=== PATIENT | male | born 1955 | race Caucasian/White ===

== ENCOUNTER 2017-11-11 07:45 | Emergency (ER) | payer OTHER, MEDICAID, MEDICARE ==
[~2017-11-11] VITALS: Ht 182.9 cm; Wt 91.3 kg
[2017-11-11 08:06] LABS: BASOPHILS % (AUTO) 0.3 % (0-1); EOSINOPHILS % (AUTO) 0.1 % (0-6); HEMATOCRIT 45.6 % (42.0-52.0); HEMOGLOBIN 15.6 g/dl (14.0-17.9); LYMPHOCYTES # (AUTO) 0.7 X10'3 (1.1-4.8); MEAN CORPUSCULAR HEMOGLOBIN 31.3 PG (27.0-31.0); MEAN CORPUSCULAR HGB CONC 34.2 % (33.0-36.5); MEAN CORPUSCULAR VOLUME 91.5 FL (78-98); MEAN PLATELET VOLUME 9.9 FL (7.4-10.4); MONOCYTES # (AUTO) 0.5 X10'3 (0-0.9); MONOCYTES % (AUTO) 5.6 % (2-12); NEUTROPHILS # (AUTO) 8.5 X10'3 (1.8-7.7); PLATELET COUNT 154 X10'3 (140-440); RED BLOOD COUNT 4.99 X10'6 (4.70-6.10); RED CELL DISTRIBUTION WIDTH 13.5 % (11.5-14.5); WHITE BLOOD COUNT 9.8 X10'3 (4.5-11.0)
[2017-11-11 08:24] LABS: ALANINE AMINOTRANSFERASE 27 U/L (12-78); ALBUMIN 4.1 G/DL (3.4-5.0); ALBUMIN/GLOBULIN RATIO 1.1 (1.1-1.5); ALKALINE PHOSPHATASE 86 IU/L (46-116); ANION GAP 13 (8-16); ASPARTATE AMINO TRANSFERASE 21 U/L (10-37); BLOOD UREA NITROGEN 24 MG/DL (7-18); BUN/CREATININE RATIO 20.5 (5.4-32.0); CALCIUM 9.3 MG/DL (8.5-10.1); CHLORIDE 102 MMOL/L (99-107); CREATININE 1.17 MG/DL (0.60-1.10); GLUCOSE 119 MG/DL (70-104); POTASSIUM 3.4 MMOL/L (3.5-5.1); SODIUM 136 MMOL/L (135-145); TOTAL CARBON DIOXIDE 21.2 MMOL/L (24-32); eGFR 63 ML/MIN
[2017-11-11] MEDS ORDERED: normal saline 1000ML IV soln IVB ONE (08:55)
[2017-11-11 08:57] LABS: INR 1.1 INR; PARTIAL THROMBOPLASTIN TIME 24 SECONDS (22-32); PROTHROMBIN TIME 11.1 SECONDS (9.0-12.0)
[2017-11-11] MEDS ORDERED: ONDA8TAB9 PO (11:55)
[2017-11-11 12:07] VITALS: BP 160/96
== END 2017-11-11 12:09 | disposition home or self-care (01) ==
LOC: ER 07:45
DX: R11.2 Nausea with vomiting, unspecified (principal); R19.7 Diarrhea, unspecified; R07.89 Other chest pain; I10 Essential (primary) hypertension; E78.00 Pure hypercholesterolemia, unspecified; G89.29 Other chronic pain
CPT/HCPCS: 36415; 71045; 80053; 83735; 83880; 84484; 85025; 85610; 85730; 93005; 96360; 99285; J7030

== ENCOUNTER 2018-03-10 08:43 | Emergency (ER) | payer OTHER, MEDICARE, MEDICAID ==
[~2018-03-10] VITALS: Ht 182.9 cm; Wt 86.0 kg
[~2018-03-10 08:43] MED LIST: ONDA8TAB9 PO
[2018-03-10 08:45] VITALS: BP 137/78
[2018-03-10] MEDS ORDERED: CYCL-1 PO (09:19)
[2018-03-10] MEDS ORDERED: ketorolac trometh inj. 60 MG/2 ML VIAL IM ONE (09:20)
== END 2018-03-10 09:36 | disposition home or self-care (01) ==
LOC: ER 08:44
DX: M54.6 Pain in thoracic spine (principal); E78.00 Pure hypercholesterolemia, unspecified; I10 Essential (primary) hypertension; G89.29 Other chronic pain; F12.90 Cannabis use, unspecified, uncomplicated; Z87.891 Personal history of nicotine dependence; Z79.899 Other long term (current) drug therapy; X50.1XXA Overexertion from prolonged static or awkward postures, initial encounter; Y93.9 Activity, unspecified; Y92.89 Other specified places as the place of occurrence of the external cause; Y99.8 Other external cause status
CPT/HCPCS: 71046; 96372; 99284; J1885

== ENCOUNTER 2018-12-01 13:46 | Emergency (ER) | payer MEDICARE, OTHER ==
[~2018-12-01] VITALS: Ht 182.9 cm; Wt 85.6 kg
[~2018-12-01 13:46] MED LIST changes: +CYCL-1 PO
[2018-12-01 14:12] VITALS: BP 100/67
[2018-12-01] MEDS ORDERED: HYDR-4353 PO (15:32)
== END 2018-12-01 15:42 | disposition home or self-care (01) ==
LOC: ER 13:46
DX: M54.2 Cervicalgia (principal); E78.00 Pure hypercholesterolemia, unspecified; I10 Essential (primary) hypertension; G89.29 Other chronic pain; F12.90 Cannabis use, unspecified, uncomplicated; Z98.890 Other specified postprocedural states
CPT/HCPCS: 72040; 99283

== ENCOUNTER 2019-01-28 16:07 | Emergency (ER) | payer MEDICARE, OTHER ==
[~2019-01-28] VITALS: Ht 182.9 cm; Wt 90.0 kg
[2019-01-28] MEDS ORDERED: METH500T PO (16:36)
[2019-01-28] MEDS ORDERED: ONDA4TAB6 PO (16:36)
[2019-01-28] MEDS ORDERED: HYDR-3965 PO (16:36)
[2019-01-28] MEDS ORDERED: VAL5T PO (16:36)
[2019-01-28] MEDS ORDERED: METH4TAB3 PO (16:36)
[2019-01-28] MEDS ORDERED: HYDROcodone/acetaminophen 5mg/325mg tablet PO ONE (16:40)
[2019-01-28] MEDS ORDERED: diazepam 5mg tablet PO ONE (16:40)
[2019-01-28] MEDS ORDERED: dexamethasone 4mg tablet PO ONE (16:40)
[2019-01-28] MEDS ORDERED: ondansetron 4mg rapidly disintigrating tab PO ONE (16:40)
--- NOTE | 2019-01-28 17:21 | NUR ---
CALLED PT DENZEL HENDERSON PER PT, #[phone] HERE IN 20MIN
[2019-01-28 17:34] VITALS: BP 138/89
== END 2019-01-28 17:37 | disposition home or self-care (01) ==
LOC: ER 16:07
DX: S16.1XXA Strain of muscle, fascia and tendon at neck level, initial encounter (principal); R20.0 Anesthesia of skin; E78.00 Pure hypercholesterolemia, unspecified; I10 Essential (primary) hypertension; G89.29 Other chronic pain; F12.90 Cannabis use, unspecified, uncomplicated; Z98.890 Other specified postprocedural states; Z79.899 Other long term (current) drug therapy; W10.8XXA Fall (on) (from) other stairs and steps, initial encounter; Y93.89 Activity, other specified; Y92.89 Other specified places as the place of occurrence of the external cause; Y99.8 Other external cause status
CPT/HCPCS: 99284; J2405; J8540

== ENCOUNTER 2019-07-24 12:52 | Emergency (ER) | payer MEDICARE ==
[~2019-07-24] VITALS: Ht 177.8 cm; Wt 86.0 kg
[~2019-07-24 12:52] MED LIST changes: +METH4TAB3 PO; +METH500T PO; +ONDA4TAB6 PO
[2019-07-24 13:59] LABS: CLARITY,URINE CLEAR (Clear); COLOR,URINE STRAW (Yellow); GLUCOSE, URINE NEGATIVE (Neg); KETONES,URINE NEGATIVE (Neg); LEUKOCYTE ESTERASE ,URINE NEGATIVE (Neg); NITRITES, URINE NEGATIVE (Neg); OCCULT BLOOD,URINE SMALL (Neg); PROTEIN,URINE NEGATIVE (Neg); UA COLLECTION TYPE CLN CATCH MIDSTREAM; UROBILINOGEN,URINE 0.2 E.U/dL (0.2-1.0)
[2019-07-24 14:06] LABS: URINE AMPHETAMINE SCREEN NEGATIVE (Neg); URINE BARBITUATE SCREEN NEGATIVE (Neg); URINE BENZODIAZEPINES SCREEN POSITIVE (Neg); URINE CANNABINOID SCREEN POSITIVE (Neg); URINE COCAINE SCREEN NEGATIVE (Neg); URINE METHADONE SCREEN NEGATIVE (Neg); URINE OPIATE SCREEN NEGATIVE (Neg); URINE PHENCYCLIDINE SCREEN NEGATIVE (Neg)
[2019-07-24 14:07] LABS: BACTERIA,URINE NONE SEEN /HPF (Neg); MUCUS STRANDS NONE SEEN /LPF (Neg); RBC,URINE 0-2 /HPF (0-2); SQUAMOUS EPITHELIAL CELL,UR NONE SEEN /LPF (FEW); WBC,URINE NONE SEEN /HPF (0-4)
[2019-07-24 14:37] LABS: BASOPHILS % (AUTO) 0.8 % (0-1); EOSINOPHILS # (AUTO) 0.4 X10'3 (0-0.9); EOSINOPHILS % (AUTO) 6.3 % (0-6); HEMATOCRIT 43.2 % (42.0-52.0); HEMOGLOBIN 14.9 g/dl (14.0-17.9); LYMPHOCYTES # (AUTO) 1.5 X10'3 (1.1-4.8); LYMPHOCYTES % (AUTO) 25.7 % (21-51); MEAN CORPUSCULAR HEMOGLOBIN 30.9 PG (27.0-31.0); MEAN CORPUSCULAR HGB CONC 34.4 g/dL (33.0-36.5); MEAN CORPUSCULAR VOLUME 89.7 FL (78-98); MEAN PLATELET VOLUME 10.1 FL (7.4-10.4); MONOCYTES # (AUTO) 0.5 X10'3 (0-0.9); MONOCYTES % (AUTO) 8.3 % (2-12); NEUTROPHILS # (AUTO) 3.5 X10'3 (1.8-7.7); NEUTROPHILS % (AUTO) 58.9 % (42-75); PLATELET COUNT 177 X10'3 (140-440); RED BLOOD COUNT 4.81 X10'6 (4.70-6.10); RED CELL DISTRIBUTION WIDTH 13.1 % (11.5-14.5)
[2019-07-24 14:43] LABS: ALANINE AMINOTRANSFERASE 27 U/L (12-78); ALBUMIN 3.9 G/DL (3.4-5.0); ALBUMIN/GLOBULIN RATIO 1.1 (1.1-1.5); ALKALINE PHOSPHATASE 80 IU/L (46-116); ANION GAP 4 (8-16); ASPARTATE AMINO TRANSFERASE 16 U/L (10-37); BILIRUBIN,TOTAL 0.5 MG/DL (0.1-1.0); BLOOD UREA NITROGEN 22 MG/DL (7-18); BUN/CREATININE RATIO 19.1 (5.4-32.0); CALCIUM 8.7 MG/DL (8.5-10.1); CHLORIDE 106 MMOL/L (99-107); CREATININE 1.15 MG/DL (0.60-1.10); GLUCOSE 102 MG/DL (70-104); POTASSIUM 4.8 MMOL/L (3.5-5.1); SODIUM 140 MMOL/L (135-145); TOTAL PROTEIN 7.3 G/DL (6.4-8.2); eGFR 64 ML/MIN
[2019-07-24] MEDS ORDERED: pantoprazole 40mg Tablet.DR PO ONE (14:50)
[2019-07-24] MEDS ORDERED: famotidine 20mg tablet PO ONE (14:50)
[2019-07-24 14:54] LABS: ETHANOL < 0.010 GM/DL (0.0-0.010); TROPONIN I < 0.04 NG/ML (0.0-0.05)
[2019-07-24] MEDS ORDERED: famotidine 10mg tablet PO ONE (14:55)
--- NOTE | 2019-07-24 14:55 | NUR ---
Patient laying with his eyes closed. RN spoke to patient who states he has felt increased S/I for the last couple of days. RN asked patient if he had a plan he said he was looking for his guns but he thinks his took them. RN was given permission to speak to the , Marj ([phone]). Marj said she took his guns off site because she was worried about him. did not know patient had been transported to [facility] from [facility]. RN explained procedure.
--- NOTE | 2019-07-24 16:49 | NUR ---
Patient sleeping. No distress observed. Continue to monitor.
--- NOTE | 2019-07-24 18:36 | NUR ---
PT IS LAYING IN BED SPEAKING WITH [facility]. THIS RN ASSUMED CARE OF PT. PT WAS EATING DINNER WITH NO PROBLEM. RESPIRATIONS ARE EVEN AND UNLABORED. APPEARS TO BE IN NO DISTRESS.
--- NOTE | 2019-07-24 20:15 | NUR ---
physical assessment done at bedside. pt is still c/o of left upper arm pain. states "feels like knife stabs." pt is currently lying on his left side. respirations are even and unlabored. appears to be in no distress.
--- NOTE | 2019-07-24 22:10 | NUR ---
pt is currently sleepin in a supine position. Respirations are even and unlabored and appears to be in no distress.
[2019-07-24] MEDS ORDERED: NO HOME MEDS (22:21)
--- NOTE | 2019-07-25 00:02 | NUR ---
Pt appears to be sleeping on his left side. Respirationis are even and unlabored. Does not appear to be in any distress at the moment.
--- NOTE | 2019-07-25 02:05 | NUR ---
Pt continues to sleep. Currently laying in a supine position. Respirations are even and unlabored. Does not appear to be in any distress.
--- NOTE | 2019-07-25 04:08 | NUR ---
Pt woke up to use the urinal. There was a total of 500mls voided. He went back to laying in a supine postion and appears to be sleeping at the moment. Respirations are even and unlabored, does not appear to be in any distress.
[2019-07-25 05:37] VITALS: BP 119/58
[2019-07-25] MEDS ORDERED: LORazepam 1 MG tablet PO ONE (08:05)
--- NOTE | 2019-07-25 10:29 | NUR ---
[facility] called and states they have declined pt. They will inform [facility] of this.
--- NOTE | 2019-07-25 15:23 | NUR ---
Pt came up to the desk asking for a perscription so he could just go home. Pt states he is ready to go home and has a ride.
== END 2019-07-25 17:24 | disposition home or self-care (01) ==
LOC: ER 12:53
DX: R45.851 Suicidal ideations (principal); R07.89 Other chest pain; E78.00 Pure hypercholesterolemia, unspecified; I10 Essential (primary) hypertension; G89.29 Other chronic pain; F12.90 Cannabis use, unspecified, uncomplicated; Z98.890 Other specified postprocedural states
CPT/HCPCS: 36415; 80053; 80305; 80320; 81001; 84443; 84484; 85025; 99284

== ENCOUNTER 2019-12-07 09:01 | Inpatient (IN) | payer OTHER ==
[~2019-12-07] VITALS: Ht 182.9 cm; Wt 79.5 kg
[~2019-12-07 09:01] MED LIST changes: +ASPI81TA52 PO; +ATOR20TA66 PO; +CHOL100025 PO; +CLOP75TA4 PO; -CYCL-1 PO; -METH4TAB3 PO; -METH500T PO; -ONDA4TAB6 PO; -ONDA8TAB9 PO
[2019-12-07 09:50] LABS: BASOPHILS % (AUTO) 0.7 % (0-1); EOSINOPHILS # (AUTO) 0.3 X10'3 (0-0.9); EOSINOPHILS % (AUTO) 5.5 % (0-6); HEMATOCRIT 42.3 % (42.0-52.0); HEMOGLOBIN 14.3 g/dl (14.0-17.9); LYMPHOCYTES # (AUTO) 1.2 X10'3 (1.1-4.8); LYMPHOCYTES % (AUTO) 20.7 % (21-51); MEAN CORPUSCULAR HGB CONC 33.8 g/dL (33.0-36.5); MEAN CORPUSCULAR VOLUME 91.8 FL (78-98); MONOCYTES # (AUTO) 0.4 X10'3 (0-0.9); MONOCYTES % (AUTO) 7.1 % (2-12); PLATELET COUNT 161 X10'3 (140-440); RED BLOOD COUNT 4.61 X10'6 (4.70-6.10); RED CELL DISTRIBUTION WIDTH 13.1 % (11.5-14.5)
[2019-12-07 10:03] LABS: ALANINE AMINOTRANSFERASE 26 U/L (12-78); ALBUMIN 3.9 G/DL (3.4-5.0); ALBUMIN/GLOBULIN RATIO 1.2 (1.1-1.5); ALKALINE PHOSPHATASE 73 IU/L (46-116); ANION GAP 3 (8-16); ASPARTATE AMINO TRANSFERASE 18 U/L (10-37); BILIRUBIN,TOTAL 0.6 MG/DL (0.1-1.0); BLOOD UREA NITROGEN 24 MG/DL (7-18); BUN/CREATININE RATIO 20.2 (5.4-32.0); CALCIUM 8.9 MG/DL (8.5-10.1); CHLORIDE 109 MMOL/L (99-107); CREATININE 1.19 MG/DL (0.60-1.10); GLUCOSE 96 MG/DL (70-104); POTASSIUM 4.4 MMOL/L (3.5-5.1); SODIUM 142 MMOL/L (135-145); TOTAL PROTEIN 7.1 G/DL (6.4-8.2); eGFR 61 ML/MIN
[2019-12-07] MEDS ORDERED: CLOP75TA15 PO (10:57)
[2019-12-07] MEDS ORDERED: ATOR40TA PO (10:57)
[2019-12-07] MEDS ORDERED: acetaminophen 325mg tablet PO PRN (11:00)
[2019-12-07] MEDS ORDERED: magnesium Cl slow-release 64mg tablet PO PRN (11:00)
[2019-12-07] MEDS ORDERED: magnesium 2GM in 50ml NS 50 ML IV PRN (11:00)
[2019-12-07] MEDS ORDERED: potassium CL 10mEq/100ml bag 100 ML IV PRN ×2 (11:00)
[2019-12-07] MEDS ORDERED: morphine 2 MG/ML inj. syringe IV PRN (11:00)
[2019-12-07] MEDS ORDERED: mag hydrox/Alum hydrox/simeth 30ml oral suspension PO PRN (11:00)
[2019-12-07] MEDS ORDERED: ondansetron/PF 4mg/2ml inj IV PRN (11:00)
[2019-12-07] MEDS ORDERED: potassium Cl 20 mEq SR tablet PO PRN ×2 (11:00)
[2019-12-07] MEDS ORDERED: magnesium 4gm in 100ml NS 100 ML IV PRN (11:00)
[2019-12-07] MEDS ORDERED: GABA300C PO (11:01)
[2019-12-07] MEDS ORDERED: DULO-31 PO (11:01)
--- NOTE | 2019-12-07 15:06 | NUR ---
Called for report, primary nurse on break and will call back to give report.
--- NOTE | 2019-12-07 15:11 | NUR ---
pt belongings: collapsible cane, boots, socks, jeans, tshirt, wallet. 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
--- NOTE | 2019-12-07 18:22 | NUR ---
Patient in room [facility]. I have received report from Iram MONTERO and had the opportunity to ask questions and assume patient care.
[2019-12-07] MEDS: K and/or MAG REPLACEMENT MC SCH (20:00)
[2019-12-07] MEDS ORDERED: nitroGLYCERIN 0.4mg SUBLingual tab SL PRN (22:55)
[2019-12-07] MEDS ORDERED: aminophylline 250mg/10ml inj. IV PRN (22:55)
[2019-12-07] MEDS ORDERED: metoprolol tartrate 1mg/ml inj IV PRN (22:55)
[2019-12-07] MEDS ORDERED: regadenoson 0.4mg/5ml syringe IV ONE (22:55)
[2019-12-08] VITALS (9 sets, daily range): BP systolic 125–155; BP diastolic 72–88
[2019-12-08] MEDS ORDERED: regadenoson 0.4mg/5ml syringe IV PRN (01:35)
--- NOTE | 2019-12-08 03:06 | NUR ---
Pt NPO for shane and SL. Contacted MD; does not want maintenance fluids despite NPO status.
[2019-12-08 05:06] LABS: BASOPHILS # (AUTO) 0.1 X10'3 (0-0.2); BASOPHILS % (AUTO) 0.7 % (0-1); EOSINOPHILS # (AUTO) 0.4 X10'3 (0-0.9); HEMATOCRIT 43.6 % (42.0-52.0); LYMPHOCYTES # (AUTO) 1.4 X10'3 (1.1-4.8); LYMPHOCYTES % (AUTO) 19.2 % (21-51); MEAN CORPUSCULAR HEMOGLOBIN 31.4 PG (27.0-31.0); MEAN CORPUSCULAR HGB CONC 34.4 g/dL (33.0-36.5); MEAN CORPUSCULAR VOLUME 91.4 FL (78-98); MEAN PLATELET VOLUME 9.9 FL (7.4-10.4); MONOCYTES # (AUTO) 0.6 X10'3 (0-0.9); MONOCYTES % (AUTO) 8.3 % (2-12); NEUTROPHILS # (AUTO) 4.9 X10'3 (1.8-7.7); NEUTROPHILS % (AUTO) 65.8 % (42-75); PLATELET COUNT 164 X10'3 (140-440); RED BLOOD COUNT 4.77 X10'6 (4.70-6.10); RED CELL DISTRIBUTION WIDTH 13.4 % (11.5-14.5); WHITE BLOOD COUNT 7.5 X10'3 (4.5-11.0)
[2019-12-08 05:10] LABS: ALBUMIN 3.9 G/DL (3.4-5.0); ANION GAP 7 (8-16); BLOOD UREA NITROGEN 17 MG/DL (7-18); BUN/CREATININE RATIO 14.2 (5.4-32.0); CALCIUM 8.7 MG/DL (8.5-10.1); CHLORIDE 107 MMOL/L (99-107); GLUCOSE 97 MG/DL (70-104); MAGNESIUM 2.1 MG/DL (1.5-2.4); SODIUM 141 MMOL/L (135-145); TOTAL CARBON DIOXIDE 26.7 MMOL/L (24-32); eGFR 61 ML/MIN
--- NOTE | 2019-12-08 06:34 | NUR ---
Patients Marj called in. Updated as to patient status.
--- NOTE | 2019-12-08 06:44 | NUR ---
assessed the pt for homans sign (present), no redness, swelling or warmth. Addendum: 12/08/19 at 0645 by Amada Enrique RN Amended: Links added.
--- NOTE | 2019-12-08 06:47 | NUR ---
Problems reprioritized. Patient report given, questions answered & plan of care reviewed with Kenyatta MONTERO.
--- NOTE | 2019-12-08 06:49 | NUR ---
Problems reprioritized. Patient report given, questions answered & plan of care reviewed with KYLAH You.
[2019-12-08] MEDS: K and/or MAG REPLACEMENT MC SCH (08:00)
--- NOTE | 2019-12-08 09:00 | NUR ---
Dr Contreras aware patient at [facility] for Rosetta scan and that his home medications needs to be addressed.
--- NOTE | 2019-12-08 09:12 | NUR ---
Patient taken via wheelchair to [facility] for shane scan
--- NOTE | 2019-12-08 11:23 | NUR ---
Patient back from [facility] from Rosetta scan resting comfortably awaiting results. Patient aware I can't feed him until results are back but will order a tray as soon as I find out .
--- NOTE | 2019-12-08 12:18 | NUR ---
PAGER ID: [phone] MESSAGE: Kenyatta Surg [id number] Rosetta scan results up for patient 341 [address] please call patient would also like to eat.
--- NOTE | 2019-12-08 13:39 | NUR ---
Student documentation: I have reviewed and agree with all interventions, assessments performed and documented by Tere, nursing scheduler.
--- NOTE | 2019-12-08 13:40 | NUR ---
Student Medication Administration: For this medication-pass time frame, all medication were reviewed, dispensed, administered and documented per hospital policy by Tere clinical nursing director.
--- NOTE | 2019-12-08 15:00 | NUR ---
Patients discharge instructions reviewed with patient and patient verbalized understanding. Patients IV dc'd cannula intact. Patient states he has all his belongings. Patient taken to [facility] vehicle for discharge.
== END 2019-12-08 15:03 | disposition home or self-care (01) | DRG 313 ==
LOC: ER 09:01 → ED HOLD 10:56 → SUR 3N 15:44 → OBSVTOIN 12-08 08:30
PROVIDERS: ADMIT Internal Medicine; ATTEND Internal Medicine
PROC: 4A02XM4 Measurement of Cardiac Total Activity, External Approach (ICD-10-PCS; principal; 2019-12-08)
PROC: 3E073KZ Introduction of Other Diagnostic Substance into Coronary Artery, Percutaneous Approach (ICD-10-PCS; 2019-12-08)
DX: R07.89 Other chest pain (principal); E78.5 Hyperlipidemia, unspecified; F32.9 Major depressive disorder, single episode, unspecified; E78.00 Pure hypercholesterolemia, unspecified; I10 Essential (primary) hypertension; G89.29 Other chronic pain; Z86.73 Personal history of transient ischemic attack (TIA), and cerebral infarction without residual deficits; Z79.02 Long term (current) use of antithrombotics/antiplatelets; Z79.82 Long term (current) use of aspirin; Z79.899 Other long term (current) drug therapy
CPT/HCPCS: 36415; 71045; 78452; 80048; 80053; 83735; 84484; 85025; 87081; 93005; 93017; 93306; A9500; G0378; J2785

== ENCOUNTER 2020-06-13 15:20 | Emergency (ER) | payer OTHER ==
[~2020-06-13] VITALS: Ht 182.9 cm; Wt 83.2 kg
[~2020-06-13 15:20] MED LIST changes: -ATOR20TA66 PO; +ATOR40TA PO; -CHOL100025 PO; +CLOP75TA15 PO; -CLOP75TA4 PO; +DULO-31 PO; +GABA300C PO
[2020-06-13] MEDS ORDERED: normal saline 1000ML IV soln IVB ONE ×2 (15:45→17:45)
[2020-06-13 16:38] LABS: BASOPHILS % (AUTO) 0.4 % (0-1); EOSINOPHILS % (AUTO) 0 % (0-6); HEMATOCRIT 48.8 % (42.0-52.0); LYMPHOCYTES # (AUTO) 1.2 X10'3 (1.1-4.8); LYMPHOCYTES % (AUTO) 14.9 % (21-51); MEAN CORPUSCULAR HEMOGLOBIN 32.2 PG (27.0-31.0); MEAN CORPUSCULAR HGB CONC 34.8 g/dL (33.0-36.5); MEAN CORPUSCULAR VOLUME 92.3 FL (78-98); MEAN PLATELET VOLUME 10.1 FL (7.4-10.4); MONOCYTES % (AUTO) 12.3 % (2-12); NEUTROPHILS % (AUTO) 72.4 % (42-75); PLATELET COUNT 159 X10'3 (140-440); RED BLOOD COUNT 5.29 X10'6 (4.70-6.10); RED CELL DISTRIBUTION WIDTH 13.2 % (11.5-14.5); WHITE BLOOD COUNT 8.2 X10'3 (4.5-11.0)
[2020-06-13 16:51] LABS: PARTIAL THROMBOPLASTIN TIME 31 SECONDS (22-32)
[2020-06-13 17:07] LABS: C-REACTIVE PROTEIN 8.18 MG/DL (0.0-0.5); FERRITIN 958 NG/ML (26-388); LACTATE DEHYDROGENASE 247 U/L (85-227); MAGNESIUM 2.4 MG/DL (1.5-2.4)
--- NOTE | 2020-06-13 17:30 | NUR ---
PATIENT REFUSED TO HAVE COVID SWAB PERFORMED AND STATES "YOU ARE NOT STICKING THAT UP MY NOSE". BLAYNE BEATTY NOTIFIED OF THIS OCCURRENCE.
[2020-06-13] MEDS ORDERED: acetaminophen 1,000mg/100ml IV 100 ML IV ONE (17:45)
[2020-06-13] MEDS ORDERED: ketorolac trometh. 30mg/ml inj. IV ONE (17:45)
[2020-06-13 18:17] LABS: ALANINE AMINOTRANSFERASE 55 U/L (12-78); ALBUMIN/GLOBULIN RATIO 0.9 (1.1-1.5); ALKALINE PHOSPHATASE 106 IU/L (46-116); ANION GAP 13 (8-16); ASPARTATE AMINO TRANSFERASE 47 U/L (10-37); BILIRUBIN,TOTAL 0.7 MG/DL (0.1-1.0); BLOOD UREA NITROGEN 36 MG/DL (7-18); BUN/CREATININE RATIO 22.9 (5.4-32.0); CALCIUM 9.5 MG/DL (8.5-10.1); CHLORIDE 97 MMOL/L (99-107); CREATININE 1.57 MG/DL (0.60-1.10); GLUCOSE 95 MG/DL (70-104); POTASSIUM 4.2 MMOL/L (3.5-5.1); SODIUM 134 MMOL/L (135-145); TOTAL CARBON DIOXIDE 23.9 MMOL/L (24-32); TOTAL PROTEIN 8.4 G/DL (6.4-8.2); eGFR 44 ML/MIN
[2020-06-13 18:19] VITALS: BP 108/72
--- NOTE | 2020-06-13 20:06 | NUR ---
Patient desatured up to 83% when gait tested. provider was made aware. BLAYNE Thompson consulted with patient regarding an admission for symptomatic covid 19, however patient refused.
[2020-06-18] MEDS ORDERED: DEXA1TAB PO (10:56)
== END 2020-06-13 20:30 | disposition home or self-care (01) ==
LOC: ER 15:20
DX: U07.1 COVID-19 (principal); R05 Cough; E78.00 Pure hypercholesterolemia, unspecified; I10 Essential (primary) hypertension; G89.29 Other chronic pain; Z86.73 Personal history of transient ischemic attack (TIA), and cerebral infarction without residual deficits; F12.90 Cannabis use, unspecified, uncomplicated; Z91.018 Allergy to other foods; Z79.82 Long term (current) use of aspirin; Z79.899 Other long term (current) drug therapy
CPT/HCPCS: 36415; 71045; 80053; 82728; 83615; 83735; 83880; 84145; 84484; 85025; 85610; 85730; 86140; 87635; 93005; 96374; 96375; 99285; C9803; J0131; J1885; J7030; 96365

== ENCOUNTER 2021-01-04 22:59 | Emergency (ER) | payer OTHER ==
[~2021-01-04] VITALS: Ht 182.9 cm; Wt 78.0 kg
[~2021-01-04 22:59] MED LIST changes: -ATOR40TA PO; -CLOP75TA15 PO; +DEXA1TAB PO; -DULO-31 PO; -GABA300C PO
[2021-01-05] MEDS ORDERED: naloxone 2mg/2ml inj IV ONE (01:35)
[2021-01-05] MEDS ORDERED: normal saline 1000ML IV soln IVB ONE (01:35)
[2021-01-05 01:54] LABS: BASOPHILS # (AUTO) 0.1 X10'3 (0-0.2); BASOPHILS % (AUTO) 0.8 % (0-1); EOSINOPHILS # (AUTO) 0.5 X10'3 (0-0.9); EOSINOPHILS % (AUTO) 6.4 % (0-6); HEMATOCRIT 40.3 % (42.0-52.0); HEMOGLOBIN 13.7 g/dl (14.0-17.9); LYMPHOCYTES # (AUTO) 1.7 X10'3 (1.1-4.8); LYMPHOCYTES % (AUTO) 22.9 % (21-51); MEAN CORPUSCULAR HEMOGLOBIN 30.7 PG (27.0-31.0); MEAN CORPUSCULAR HGB CONC 33.9 g/dL (33.0-36.5); MEAN CORPUSCULAR VOLUME 90.6 FL (78-98); MEAN PLATELET VOLUME 8.9 FL (7.4-10.4); MONOCYTES # (AUTO) 0.7 X10'3 (0-0.9); NEUTROPHILS # (AUTO) 4.3 X10'3 (1.8-7.7); NEUTROPHILS % (AUTO) 59.9 % (42-75); PLATELET COUNT 174 X10'3 (140-440); RED BLOOD COUNT 4.45 X10'6 (4.70-6.10); RED CELL DISTRIBUTION WIDTH 13.7 % (11.5-14.5); WHITE BLOOD COUNT 7.2 X10'3 (4.5-11.0)
[2021-01-05 02:06] LABS: ALANINE AMINOTRANSFERASE 23 U/L (12-78); ALBUMIN 3.6 G/DL (3.4-5.0); ALKALINE PHOSPHATASE 87 IU/L (46-116); ANION GAP 2 (8-16); ASPARTATE AMINO TRANSFERASE 16 U/L (10-37); BILIRUBIN,TOTAL 0.4 MG/DL (0.1-1.0); BLOOD UREA NITROGEN 33 MG/DL (7-18); BUN/CREATININE RATIO 24.6 (5.4-32.0); CALCIUM 8.5 MG/DL (8.5-10.1); CHLORIDE 108 MMOL/L (99-107); CREATININE 1.34 MG/DL (0.60-1.10); ETHANOL < 0.010 GM/DL (0.0-0.010); GLUCOSE 95 MG/DL (70-104); POTASSIUM 4.2 MMOL/L (3.5-5.1); SODIUM 142 MMOL/L (135-145); TOTAL CARBON DIOXIDE 32.1 MMOL/L (24-32); TOTAL PROTEIN 7.1 G/DL (6.4-8.2); eGFR 53 ML/MIN
--- NOTE | 2021-01-05 02:13 | NUR ---
Pt given narcan 0.2 mg iv with no change in his somulance. Pt does awaken to painful stimuli and will awken to voice and answer questions appropriately.
--- NOTE | 2021-01-05 02:36 | NUR ---
PT VERY EASY TO ROUSE BUT ALSO DIFFICULT TO KEEP AWAKE. HR VARIABLE FROM 42 BPM TO 77 BPM. UNABLE TO GET A UA AT THIS POINT. PT STATES HE DOESNT HAVE TO VOID AT THIS TIME.
[2021-01-05 03:55] VITALS: BP 132/71
[2021-01-05 04:10] LABS: URINE AMPHETAMINE SCREEN POSITIVE (Neg); URINE BARBITUATE SCREEN NEGATIVE (Neg); URINE BENZODIAZEPINES SCREEN NEGATIVE (Neg); URINE CANNABINOID SCREEN POSITIVE (Neg); URINE COCAINE SCREEN NEGATIVE (Neg); URINE METHADONE SCREEN NEGATIVE (Neg); URINE OPIATE SCREEN NEGATIVE (Neg); URINE PHENCYCLIDINE SCREEN NEGATIVE (Neg)
[2021-01-05 04:11] LABS: CLARITY,URINE CLEAR (Clear); COLOR,URINE YELLOW (Yellow); GLUCOSE, URINE NEGATIVE (Neg); KETONES,URINE NEGATIVE (Neg); LEUKOCYTE ESTERASE ,URINE NEGATIVE (Neg); NITRITES, URINE NEGATIVE (Neg); OCCULT BLOOD,URINE NEGATIVE (Neg); PROTEIN,URINE NEGATIVE (Neg); UROBILINOGEN,URINE 0.2 E.U/dL (0.2-1.0)
[2021-01-05 04:14] LABS: UA COLLECTION TYPE NON-SPECIFIED
== END 2021-01-05 05:12 | disposition home or self-care (01) ==
LOC: ER 22:59
DX: F15.10 Other stimulant abuse, uncomplicated (principal); R07.89 Other chest pain; E78.00 Pure hypercholesterolemia, unspecified; I10 Essential (primary) hypertension; G89.29 Other chronic pain; F12.90 Cannabis use, unspecified, uncomplicated; Z86.73 Personal history of transient ischemic attack (TIA), and cerebral infarction without residual deficits; Z98.890 Other specified postprocedural states; Z79.82 Long term (current) use of aspirin; Z79.899 Other long term (current) drug therapy
CPT/HCPCS: 36415; 70450; 71045; 80053; 80305; 80320; 81003; 82948; 85025; 93005; 96361; 96374; 99285; J2310; J7030

== ENCOUNTER 2022-06-14 14:58 | Emergency (ER) | payer OTHER ==
[~2022-06-14] VITALS: Ht 182.9 cm; Wt 71.4 kg
[2022-06-14 15:08] VITALS: BP 132/94
[2022-06-14] MEDS ORDERED: ketorolac tromethamine 15mg/ml inj. IV ONE (16:10)
[2022-06-14] MEDS ORDERED: HYDR-3973 PO ×2 (16:10→16:11)
== END 2022-06-14 16:44 | disposition home or self-care (01) ==
LOC: ER 14:58
DX: R07.89 Other chest pain (principal); I10 Essential (primary) hypertension; E78.00 Pure hypercholesterolemia, unspecified; G89.29 Other chronic pain; F12.90 Cannabis use, unspecified, uncomplicated
CPT/HCPCS: 71101; 96374; 99283; J1885

== ENCOUNTER 2022-08-16 20:26 | Emergency (ER) | payer OTHER ==
[~2022-08-16] VITALS: Ht 182.9 cm; Wt 90.0 kg
[~2022-08-16 20:26] MED LIST changes: +HYDR-3973 PO
[2022-08-16 20:55] VITALS: BP 156/101
[2022-08-16 21:07] LABS: BASOPHILS # (AUTO) 0.1 X10'3 (0-0.2); BASOPHILS % (AUTO) 0.8 % (0-1); EOSINOPHILS # (AUTO) 0.3 X10'3 (0-0.9); EOSINOPHILS % (AUTO) 3.6 % (0-6); HEMATOCRIT 44.2 % (42.0-52.0); HEMOGLOBIN 14.7 g/dl (14.0-17.9); LYMPHOCYTES # (AUTO) 1.6 X10'3 (1.1-4.8); MEAN CORPUSCULAR HEMOGLOBIN 30.4 PG (27.0-31.0); MEAN CORPUSCULAR HGB CONC 33.2 g/dL (33.0-36.5); MEAN CORPUSCULAR VOLUME 91.5 FL (78-98); MEAN PLATELET VOLUME 8.3 FL (7.4-10.4); MONOCYTES # (AUTO) 0.7 X10'3 (0-0.9); MONOCYTES % (AUTO) 10.1 % (2-12); NEUTROPHILS # (AUTO) 4.3 X10'3 (1.8-7.7); NEUTROPHILS % (AUTO) 62.5 % (42-75); PLATELET COUNT 299 X10'3 (140-440); RED BLOOD COUNT 4.84 X10'6 (4.70-6.10); WHITE BLOOD COUNT 6.9 X10'3 (4.5-11.0)
[2022-08-16 21:21] LABS: ALBUMIN 3.8 G/DL (3.4-5.0); ANION GAP 8 (8-16); BILIRUBIN,TOTAL 0.5 MG/DL (0.1-1.0); BLOOD UREA NITROGEN 23 MG/DL (7-18); BUN/CREATININE RATIO 20.5 (5.4-32.0); CALCIUM 9.4 MG/DL (8.5-10.1); CHLORIDE 100 MMOL/L (99-107); CREATININE 1.12 MG/DL (0.60-1.10); GLUCOSE 91 MG/DL (70-104); SODIUM 137 MMOL/L (135-145); TOTAL CARBON DIOXIDE 28.8 MMOL/L (24-32); TOTAL PROTEIN 8.4 G/DL (6.4-8.2); eGFR 65 ML/MIN
[2022-08-16 21:22] LABS: ALANINE AMINOTRANSFERASE 50 U/L (12-78); ALBUMIN/GLOBULIN RATIO 0.8 (1.1-1.5); ALKALINE PHOSPHATASE 112 IU/L (46-116); ASPARTATE AMINO TRANSFERASE 36 U/L (10-37)
[2022-08-16] MEDS ORDERED: HYDROcodone/acetaminophen 5mg/325mg tablet PO ONE (21:35)
[2022-08-16] MEDS ORDERED: ibuprofen tablet 400 MG TABLET PO ONE (21:35)
[2022-08-16] MEDS ORDERED: IBUP-1986 PO (21:40)
[2022-08-16] MEDS ORDERED: HYDR-3965 PO (21:40)
== END 2022-08-17 00:24 ==
LOC: ER 20:27
DX: R07.89 Other chest pain (principal); I10 Essential (primary) hypertension; E78.00 Pure hypercholesterolemia, unspecified; F12.90 Cannabis use, unspecified, uncomplicated; F15.20 Other stimulant dependence, uncomplicated
CPT/HCPCS: 36415; 71045; 80053; 83880; 84484; 85025; 93005; 99285

== ENCOUNTER 2024-12-17 09:30 | Emergency (ER) | payer MEDICARE, OTHER ==
[~2024-12-17] VITALS: Ht 182.9 cm; Wt 80.0 kg
[~2024-12-17 09:30] MED LIST changes: +IBUP-1986 PO
[2024-12-17 09:50] VITALS: TEMP 97.8
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
--- NOTE | 2024-12-17 10:52 | RADIOLOGY REPORT ---
[facility] - [facility] EXAMINATION: DI RIBS,UNILAT INDICATION: Rib pain COMPARISON: None TECHNIQUE: Frontal view of the chest and 3 views of the left ribs history FINDINGS: No focal consolidation, pleural effusion or significant pneumothorax. Normal cardiomediastinal silhou ette. Postsurgical changes are visualized in the left ribs. IMPRESSION: Postsurgical changes in the left ribs with no obvious acute fracture.
[2024-12-17 11:07] VITALS: BP 164/90; PULSE 59; RESP 16; O2SAT 98
== END 2024-12-17 11:10 | disposition home or self-care (01) ==
LOC: ER 09:30
DX: R07.89 Other chest pain (principal); M54.2 Cervicalgia; E78.00 Pure hypercholesterolemia, unspecified; I10 Essential (primary) hypertension; Z86.73 Personal history of transient ischemic attack (TIA), and cerebral infarction without residual deficits; Z79.82 Long term (current) use of aspirin
CPT/HCPCS: 71100; 99284

== ENCOUNTER 2024-12-26 18:13 | Emergency (ER) | payer MEDICARE ==
[~2024-12-26] VITALS: Ht 182.9 cm; Wt 70.5 kg
[2024-12-26 18:16] VITALS: TEMP 97.6
--- NOTE | 2024-12-26 18:28 | ELECTROCARDIOGRAPH REPORT ---
[facility] Test Date: 2024-12-26 Test Time: 18:21:56 Pat Name: JESUS MANUEL QUINTANA Department: EMERGENCY ROOM Room: Gender: M Revit Drafter: KAREN : 1955 Requested By: ISAAC IVEY Order Number: [id number] Reading MD: Measurements Intervals [place] Rate: 84 P: 78 ID: [id number] QRS: -44 QRSD: 98 T: 57 QT: 355 QTc: 420 Interpretive Statements Sinus rhythm Left axis deviation Low voltage, extremity and precordial leads Baseline wander in lead(s) II,III,aVF,V2 Please click the below link to view image of tracing.
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
[2024-12-26 19:01] LABS: BASOPHILS # (AUTO) 0.1 X10'3 (0-0.2); BASOPHILS % (AUTO) 0.8 % (0-1); EOSINOPHILS # (AUTO) 0.2 X10'3 (0-0.9); EOSINOPHILS % (AUTO) 1.8 % (0-6); HEMATOCRIT 42.7 % (42.0-52.0); HEMOGLOBIN 14.7 g/dl (14.0-17.9); LYMPHOCYTES # (AUTO) 1.2 X10'3 (1.1-4.8); LYMPHOCYTES % (AUTO) 13.9 % (21-51); MEAN CORPUSCULAR HEMOGLOBIN 30.4 PG (27.0-31.0); MEAN CORPUSCULAR HGB CONC 34.4 g/dL (33.0-36.5); MEAN CORPUSCULAR VOLUME 88.4 FL (78-98); MEAN PLATELET VOLUME 10.3 FL (7.4-10.4); MONOCYTES # (AUTO) 0.5 X10'3 (0-0.9); MONOCYTES % (AUTO) 6.4 % (2-12); NEUTROPHILS # (AUTO) 6.6 X10'3 (1.8-7.7); NEUTROPHILS % (AUTO) 77.1 % (42-75); PLATELET COUNT 214 X10'3 (140-440); RED BLOOD COUNT 4.83 X10'6 (4.70-6.10); RED CELL DISTRIBUTION WIDTH 13.3 % (11.5-14.5); WHITE BLOOD COUNT 8.5 X10'3 (4.5-11.0)
[2024-12-26] MEDS: ketorolac trometh 15mg/ml vial 15 MG/ML ML IV ONE (19:23)
[2024-12-26 19:46] LABS: ALANINE AMINOTRANSFERASE 33 U/L (12-78); ALBUMIN 3.7 G/DL (3.4-5.0); ALKALINE PHOSPHATASE 95 IU/L (46-116); ANION GAP 6 (8-16); ASPARTATE AMINO TRANSFERASE 20 U/L (10-37); BILIRUBIN,TOTAL 0.5 MG/DL (0.1-1.0); BLOOD UREA NITROGEN 32 MG/DL (7-18); BUN/CREATININE RATIO 24.6 (10.0-20.0); CALCIUM 9.4 MG/DL (8.5-10.1); CHLORIDE 104 MMOL/L (99-107); GLUCOSE 103 MG/DL (70-104); LIPASE 39 U/L (16-77); POTASSIUM 4.4 MMOL/L (3.5-5.1); SODIUM 139 MMOL/L (135-145); TOTAL CARBON DIOXIDE 29.4 MMOL/L (24-32); TOTAL PROTEIN 7.3 G/DL (6.4-8.2); eCRCL 52 ML/MIN; eGFR 54 ML/MIN
[2024-12-26 20:35] VITALS: BP 138/80; PULSE 68; O2SAT 96
[2024-12-26 20:37] VITALS: RESP 16
[2024-12-26 21:11] LABS: BILIRUBIN,URINE NEGATIVE (Neg); CLARITY,URINE CLEAR (Clear); COLOR,URINE YELLOW (Yellow); GLUCOSE, URINE NEGATIVE (Neg); KETONES,URINE NEGATIVE (Neg); LEUKOCYTE ESTERASE ,URINE NEGATIVE (Neg); NITRITES, URINE NEGATIVE (Neg); OCCULT BLOOD,URINE TRACE-INTACT (Neg); PROTEIN,URINE NEGATIVE (Neg); UROBILINOGEN,URINE 0.2 E.U/dL (0.2-1.0)
[2024-12-26 21:32] LABS: UA COLLECTION TYPE CLN CATCH MIDSTREAM
[2024-12-26 21:33] LABS: BACTERIA,URINE 1+ /HPF (Neg); RBC,URINE 0-2 /HPF (0-2); SQUAMOUS EPITHELIAL CELL,UR NONE SEEN /LPF (FEW); WBC,URINE 0-4 /HPF (0-4)
== END 2024-12-26 21:56 ==
LOC: ER 18:14 → EEVIPCON 18:14 → ER 21:56
DX: R10.12 Left upper quadrant pain (principal); R11.0 Nausea; E78.00 Pure hypercholesterolemia, unspecified; I10 Essential (primary) hypertension; Z86.73 Personal history of transient ischemic attack (TIA), and cerebral infarction without residual deficits; Z79.82 Long term (current) use of aspirin
CPT/HCPCS: 36415; 80053; 81001; 83690; 85025; 93005; 96374; 99284; J1885; A4615